=== PATIENT | female | born 1995 | race African-American/Black ===

== ENCOUNTER 2019-02-22 09:20 | Emergency (ER) | payer MEDICAID ==
[~2019-02-22 09:20] MED LIST: SERT100T PO
[2019-02-22] MEDS ORDERED: CYCLOBENZAPRINE HCL 10 MG TABLET ONE (09:56)
[2019-02-22] MEDS ORDERED: KETOROLAC TROMETHAMINE 60 MG/2 ML VIAL ONE (09:56)
[2019-02-22 10:22] LABS: HCG,QUAL RESULT NEGATIVE (NEGATIVE)
[2019-02-22 11:08] LABS: AMPHET/METH SCREEN,URINE NEGATIVE (NEGATIVE); BARBITURATE SCREEN, URINE NEGATIVE (NEGATIVE); BENZODIAZEPINES SCREEN,URINE NEGATIVE (NEGATIVE); CANNABINOID SCREEN,URINE NEGATIVE (NEGATIVE); COCAINE SCREEN,URINE NEGATIVE (NEGATIVE); OPIATE SCREEN,URINE NEGATIVE (NEGATIVE); PHENCYCLIDINE SCREEN,URINE NEGATIVE (NEGATIVE)
== END 2019-02-22 11:43 | disposition home or self-care (01) ==
LOC: EDH 09:20
DX: S73.102A Unspecified sprain of left hip, initial encounter (principal); I10 Essential (primary) hypertension; Z72.0 Tobacco use; W18.39XA Other fall on same level, initial encounter; Y93.89 Activity, other specified; Y92.89 Other specified places as the place of occurrence of the external cause; Y99.8 Other external cause status
CPT/HCPCS: 73502; 80305; 81025; 96372; 99285; J1885